=== PATIENT | female | born 1955 | race Caucasian/White ===

== ENCOUNTER → 2016-09-18 | Outpatient (CLI) | payer MEDICARE, BC ==
[~2016-09-18] MED LIST: DILTIAZEM240 M1 PO; LIPITOR10 MG PO; LISINOPRIL10 MG PO; METFORMIN500 MG PO; METHOTREXATE 22.5 MG; NATURE'S BLEND F1 MG; PRILOSEC OTC20 MG PO
--- NOTE | 2016-09-18 15:31 | RADIOLOGY REPORT PS360 ---
BONE DENSITOMETRY(HIP:LT SPINE HISTORY: MENOPAUSAL ORDERING PHYSICIAN: Wayne Carreno MD PATIENT AGE: 61 years COMPARISON: None FINDINGS: The BMD measured at the left femoral neck is 0.793 g/cm squared with a T score of -1.8. This is considered Osteopenic according to the World Health Organization criteria. Fracture risk is Moderate. Treatment is advised. IMPRESSION: Osteopenia. Treatment is advised. Recommend follow-up exam September 2018
--- NOTE | 2016-09-20 20:35 | RADIOLOGY REPORT PS360 ---
DIG MAMM-SCREEN ELOINA W/CAD CAD Screening COMPARISON: Digital mammograms 10/06/2012 and 02/22/2015 INDICATION: There is no personal or family history of breast cancer. The patient is on estrogen TECHNIQUE: Standard CC and MLO images were obtained. R2 CAD reviewed. FINDINGS: Scattered fibroglandular densities are seen in the central portions of both breast and the findings are bilateral and symmetrical. There is a benign-appearing calcination left breast. There is no suspicious lesion in either breast and there are no suspicious microcalcifications. Impression: Stable exam, no suspicious lesion seen recommend yearly follow-up IMPRESSION: BI-RADS CATEGORY: 2_Benign RECOMMENDED FOLLOWUP: 12M 12 MONTH FOLLOW-UP (A letter has been sent to the patient regarding results of the study.)
== END ==
LOC: RAD 09:41
DX: Z12.31 Encounter for screening mammogram for malignant neoplasm of breast (principal); Z78.0 Asymptomatic menopausal state; Z13.820 Encounter for screening for osteoporosis
CPT/HCPCS: G0202

== ENCOUNTER → 2016-12-13 | Outpatient (CLI) | payer MEDICARE, BC ==
--- NOTE | 2016-12-14 08:27 | RADIOLOGY REPORT PS360 ---
MRI-UP EXT ANY JNT W/O-RT HISTORY: Right shoulder pain with limited range of motion, recent injury LIMITED ROM OF SHOULDER ORDERING PHYSICIAN: Divine Zepeda APRN PATIENT AGE: 61 years COMPARISON: None TECHNIQUE: Standard multiplanar multiecho sequences are performed without contrast. FINDINGS: There is complete tear of the supraspinatus tendon with retraction of the musculotendinous fibers of the supraspinatus tendon. There is mild atrophy of the supraspinatus muscle. The infraspinatus tendon appears intact. The subscapularis and teres minor tendons also appear intact. No obvious labral tear. There are osteoarthritic changes of the glenohumeral joint with mild subacromial stenosis and some mild subarticular cystic changes of the humeral head. The tendon of the long head of the biceps is not identified superiorly and may be torn. Moderate amount fluid is present in the scapular/infracoracoid region cyst with bursitis. There is a small amount fluid around the shoulder joint and around the humeral head as well is in the bicipital tendon sheath and in the subdeltoid region posteriorly. No obvious fracture or dislocation. IMPRESSION: 1. Complete tear of the supraspinatus tendon with retraction of the musculotendinous fibers and mild atrophy of the supraspinatus muscle. 2. Subscapular/infra coracoid bursitis. Small amount fluid around the head and in the subdeltoid region as well 3. Osteoarthritic change of the glenohumeral joint. 4. Long head biceps tendon is not identified superiorly and could be torn or very thin.
== END ==
LOC: RAD 09:30
DX: M25.611 Stiffness of right shoulder, not elsewhere classified (principal)